=== PATIENT | male | born 2000 | race Hispanic/Latino ===

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

== ENCOUNTER 2023-02-01 09:44 | Emergency (ER) | payer OTHER ==
[~2023-02-01] VITALS: Ht 167.6 cm; Wt 64.9 kg
[2023-02-01] MEDS ORDERED: ACETAMINOPHEN WITH CODEINE 1 TAB TAB PO ONE (11:00)
[2023-02-01] MEDS ORDERED: KETOROLAC 30MG VIAL (30MG/ML) IM ONE (11:00)
[2023-02-01] MEDS ORDERED: IBUPROFEN 600 MG TABLET PO ONE (11:00)
[2023-02-01] MEDS ORDERED: PENI500T2 PO (12:02)
[2023-02-01] MEDS ORDERED: IBUP-2070 PO (12:02)
[2023-02-01] MEDS ORDERED: DEXAMETHASONE SOD PHOSPHATE 10MG/ML 1ML VIAL ONE (12:28)
[2023-02-01] MEDS ORDERED: DEXAMETHASONE SOD PHOSPHATE 4 MG/ML 1ML VIAL IM ONE (12:30)
[2023-02-01 12:33] VITALS: BP 135/79
== END 2023-02-01 12:39 | disposition home or self-care (01) ==
LOC: EDH 09:44
DX: K59.00 Constipation, unspecified (principal); J02.9 Acute pharyngitis, unspecified; R13.10 Dysphagia, unspecified; Z20.822 Contact with and (suspected) exposure to COVID-19
CPT/HCPCS: 99284; 87880; 96372 ×2; J1100; J1885